=== PATIENT | male | born 1945 | race American Indian/Alaskan Native ===

== ENCOUNTER 2019-07-05 08:33 | Observation (INO) | payer MEDICARE ==
[2019-06-29 12:59] LABS: Basophils # (Auto) 0.1 K/mm3 (0.0-0.1); Basophils % (Auto) 1.3 % (0.0-1.8); Eosinophils % (Auto) 0.4 % (0.0-4.3); Hematocrit 37.6 % (35.5-45.6); Hemoglobin 12.4 gm/dl (11.8-15.2); Lymphocytes # (Auto) 1.9 K/mm3 (1.2-5.4); Lymphocytes % (Auto) 48.1 % (13.4-35.0); Mean Corpuscular HGB Conc 33 % (32-34); Mean Corpuscular Volume 96 fl (84-94); Monocytes # (Auto) 0.5 K/mm3 (0.0-0.8); Monocytes % (Auto) 12.6 % (0.0-7.3); Platelet Count 166 K/mm3 (140-440); Red Blood Count 3.92 M/mm3 (3.65-5.03); Red Cell Distribution Width 14.6 % (13.2-15.2)
[2019-06-29 13:14] LABS: INR 0.89 (0.87-1.13)
[2019-06-29 13:15] LABS: Partial Thromboplastin Time 30.9 Sec. (24.2-36.6)
--- NOTE | 2019-06-29 13:17 | Anesthesia Consultation ---
Anesthesia Consult and Med Hx Date of service: 07/05/19 - Airway Anesthetic Teeth Evaluation: Poor (Going to have them pulled out), Chipped ROM Head & Neck: Adequate Mental/Hyoid Distance: Adequate Mallampati Class: Class II Intubation Access Assessment: Good - Pre-Operative Health Status ASA Pre-Surgery Classification: ASA3 Proposed Anesthetic Plan: General - Pulmonary Hx Smoking: Yes (STOPPED X 20 YRS) Hx Sleep Apnea: Yes (DX SLEEP APNEA , NO CPAP) - Cardiovascular System Hx Hypertension: Yes (X 12 YRS) Hx Peripheral Vascular Disease: Yes (LEGS) - Central Nervous System CVA: Yes (2012,OCC SLURRED SPEECH,POOR BALANCE) Hx Psychiatric Problems: Yes (Depression) - Other Systems Hx Cancer: No
[2019-06-29 13:18] LABS: Albumin 3.9 g/dL (3.9-5); BUN/Creatinine Ratio 18; Blood Urea Nitrogen 23 mg/dL (9-20); Calcium 9.3 mg/dL (8.4-10.2); Hemolysis Index 108
[2019-06-29 13:38] LABS: Alanine Aminotransferase 24 units/L (7-56)
[~2019-07-05 08:33] MED LIST: ANCEF/STERILE WATER 2 GM/20 ML IV NR
[2019-07-05] MEDS ORDERED: ZOFRAN IV PRN (09:31)
[2019-07-05] MEDS ORDERED: SUBLIMAZE IV PRN (09:31)
--- NOTE | 2019-07-05 09:36 | Anesthesia Day of Surgery ---
Anesthesia Day of Surgery - Day of Surgery Patient Examined: Yes Patient H&P Reviewed: Yes Patient is NPO: Yes Cardiac Clearance: Yes
[2019-07-05] MEDS ORDERED: LACTATED RINGERS 1,000 ML IV SCH (10:00)
[2019-07-05] MEDS ORDERED: DIPRIVAN 10 MG/ML IV ONE (12:29)
[2019-07-05] MEDS ORDERED: SUBLIMAZE ONE (12:29)
[2019-07-05] MEDS ORDERED: XYLOCAINE MPF 2% ONE (12:30)
[2019-07-05] MEDS ORDERED: DECADRON ONE (12:51)
[2019-07-05] MEDS ORDERED: AMBIEN PO PRN (13:12)
[2019-07-05] MEDS ORDERED: NARCAN 0.4 MG/1 ML IV PRN (13:12)
[2019-07-05] MEDS ORDERED: ZOFRAN ODT PO PRN (13:12)
--- NOTE | 2019-07-05 13:12 | Short Stay Summary ---
Short Stay Documentation Date of service: 07/05/19 - History H&P: obtained from office - Allergies and Medications Current Medications: Allergies No Known Allergies Allergy (Verified 06/28/19 14:56) Home Medications Medication Instructions Recorded Confirmed Last Taken Type Clopidogrel [Plavix] 75 mg PO QDAY 06/28/19 07/05/19 06/27/19 08:00 History Ascorbic Acid [Vitamin C] 1,000 mg PO DAILY 06/29/19 06/29/19 07/05/19 08:00 History Cholecalciferol (Vitamin D3) 2,000 unit PO QDAY 06/29/19 06/29/19 07/04/19 20:00 History [Vitamin D3 2,000 UNIT CAP] Labetalol [Labetalol 200mg TAB] 200 mg PO BID 06/29/19 06/29/19 07/05/19 08:00 History Multivit-Min/FA/Lycopen/Lutein 1 each PO DAILY 06/29/19 06/29/19 07/05/19 08:00 History [Centrum Silver Tablet] [place]-3/Dha/Epa/Fish Oil [Fish Oil 1 each PO DAILY 06/29/19 06/29/19 07/04/19 20:00 History 1,200 mg Softgel] Simvastatin 20 mg PO DAILY 06/29/19 06/29/19 07/04/19 20:00 History Uroxatral 10 mg PO DAILY 06/29/19 06/29/19 07/05/19 08:00 History amLODIPine [Norvasc] 5 mg PO DAILY 06/29/19 06/29/19 07/04/19 20:00 History Active Medications Cefazolin Sodium (Ancef/Sterile Water 2 Gm/20 Ml) 2 gm IV PREOP NR Stop: 07/05/19 23:59 Fentanyl (Sublimaze) 50 mcg IV Q5MIN PRN PRN Reason: Pain , Severe (7-10) Stop: 07/05/19 20:00 Metronidazole (Flagyl 500 Mg/100 Ml) 500 mg in 100 mls @ 200 mls/hr IV PREOP NR; Protocol Stop: 07/05/19 17:29 Lactated Ringer's (Lactated Ringers) 1,000 mls @ 125 mls/hr IV DIRECT GIORGIO Last Admin: 07/05/19 11:55 Dose: 125 mls/hr Documented by: Ondansetron HCl (Zofran) 4 mg IV ONCE PRN PRN Reason: Nausea And Vomiting - Brief post op/procedure progress note Date of procedure: 07/05/19 Pre-op diagnosis: bph Post-op diagnosis: same Procedure: cysto, TURP Anesthesia: GETA Surgeon: BRANDON PETERSON Estimated blood loss: minimal Pathology: list (prostate chips) Specimen disposition: to lab Condition: stable - Hospital course Hospital course: bactrim & norco at bedside quiñonez clear urine home with quiñonez - Disposition Condition at discharge: Stable Disposition: DC-30 STILL A PATIENT Short Stay Discharge Plan Follow up with: ROMEO MARTINI JR, MD [Primary Care Provider] - 7 Days
--- NOTE | 2019-07-05 13:56 | Post Anesthesia Evaluation ---
- Post Anesthesia Evaluation Patient Participated: Yes Airway Patent: Yes Stable Respiratory Function: Yes Nausea/Vomiting: No Temp > 96.8F: Yes Pain Manageable: Yes Adequeate Hydration: Yes Anesthesia Complications: No Block Receding Appropriately: Not Applicable Patient on Ventilator: No
[2019-07-05] MEDS ORDERED: NACL 0.9% 1000 ML 1,000 ML IV SCH (14:00)
[2019-07-05] MEDS ORDERED: ZOFRAN ONE (14:00)
[2019-07-05] MEDS ORDERED: FLAGYL 500 MG/100 ML 500 MG/100 ML BAG IV NR (17:00)
[2019-07-05] MEDS: NACL 0.9% IR SCH ×6 (17:20→23:18)
[2019-07-05] MEDS: MORPHINE IV PRN (18:42)
--- NOTE | 2019-07-05 21:11 | Operative Report ---
PREOPERATIVE DIAGNOSIS: Benign prostatic hypertrophy. POSTOPERATIVE DIAGNOSIS: Benign prostatic hypertrophy. PROCEDURES: Cystoscopy, transurethral resection of the prostate. SURGEON: Saqib Tyler MD ANESTHESIA: General. ESTIMATED BLOOD LOSS: Minimal. FLUIDS: Crystalloid. COMPLICATIONS: No complications. INDICATIONS: This 74-year-old gentleman seen in the office with obstructive urinary symptoms. He was placed on oral medication in the form of Flomax to 2 tablets a day with persistent symptoms. He also has a history of cerebrovascular accident, hypertension and hyperlipidemia. He is on Plavix. Urodynamic testing is considered with an obstructive process with a peak flow rate of 5 mL a second. Discussed options. He agreed to proceed with surgical intervention. He agreed to proceed with surgical intervention. Medical clearance was obtained by Dr. Lowell Bird. DESCRIPTION OF PROCEDURE: The patient was taken to the operative suite, placed in supine position. After adequate general anesthesia, placed in a dorsal lithotomy position, prepped and draped in a sterile fashion. Pancystourethroscopy was performed with 22-[place] Storz cystoscope, no urethral abnormalities. Prostate displayed trilobar obstruction. He had a primary median lobe of his bladder. No tumors or stones were noted. Both ureteral orifices in normal position. Next, using a 24-[place] resectoscope, cutting and coag on 200 and 120, transurethral resection of the prostate was performed in a systematic fashion, taking down the median lobe and the left and right lateral lobes. The verumontanum and external sphincter were intact. Chips were evacuated out with the [employer] evacuator. A 24-[place] 3-way catheter was placed with the aid of a catheter guide. The catheter was irrigated well. He was extubated. Rectal exam was benign. He was taken to recovery room in stable condition. JOB# [id number] [facility]
[2019-07-05] MEDS: ANCEF/NS 1 GM/50 ML 1 GM/50 ML BAG IV SCH (21:38)
[2019-07-05] MEDS: NORCO 5/325 PO PRN (21:39)
[2019-07-05] MEDS: NORMODYNE PO SCH (21:41)
[2019-07-05] MEDS ORDERED: PRAVACHOL PO SCH (22:00)
[2019-07-06] MEDS: NACL 0.9% IR SCH ×3 (00:24→06:10)
[2019-07-06] MEDS: MORPHINE IV PRN (02:25)
[2019-07-06] MEDS: ANCEF/NS 1 GM/50 ML 1 GM/50 ML BAG IV SCH (04:27)
--- NOTE | 2019-07-06 05:23 | Consultation ---
History of Present Illness - Reason for Consult Consult date: 07/05/19 Medical management Requesting physician: BRANDON PETERSON - History of Present Illness S/p Cysto/Turp---Postop patient doing well Past History Past Medical History: hypertension, hyperlipidemia, other (Bph) Past Surgical History: TURP Social history: lives with family, full code Family history: hypertension Medications and Allergies Allergies Allergy/AdvReac Type Severity Reaction Status Date / Time No Known Allergies Allergy Verified 06/28/19 14:56 Home Medications Medication Instructions Recorded Confirmed Last Taken Type Clopidogrel [Plavix] 75 mg PO QDAY 06/28/19 07/05/19 06/27/19 08:00 History Ascorbic Acid [Vitamin C] 1,000 mg PO DAILY 06/29/19 06/29/19 07/05/19 08:00 History Cholecalciferol (Vitamin D3) 2,000 unit PO QDAY 06/29/19 06/29/19 07/04/19 20:00 History [Vitamin D3 2,000 UNIT CAP] Labetalol [Labetalol 200mg TAB] 200 mg PO BID 06/29/19 06/29/19 07/05/19 08:00 History Multivit-Min/FA/Lycopen/Lutein 1 each PO DAILY 06/29/19 06/29/19 07/05/19 08:00 History [Centrum Silver Tablet] [place]-3/Dha/Epa/Fish Oil [Fish Oil 1 each PO DAILY 06/29/19 06/29/19 07/04/19 20:00 History 1,200 mg Softgel] Simvastatin 20 mg PO DAILY 06/29/19 06/29/19 07/04/19 20:00 History Uroxatral 10 mg PO DAILY 06/29/19 06/29/19 07/05/19 08:00 History amLODIPine [Norvasc] 5 mg PO DAILY 06/29/19 06/29/19 07/04/19 20:00 History Active Meds: Active Medications Acetaminophen/Hydrocodone Bitart ([place] 5/325) 2 each PO Q4H PRN PRN Reason: Pain, Moderate (4-6) Last Admin: 07/05/19 21:39 Dose: 2 each Documented by: Amlodipine Besylate (Norvasc) 5 mg PO DAILY [facility] Ascorbic Acid (Vitamin C) 1,000 mg PO QDAY GIORGIO Cholecalciferol (Vitamin D3) 1,000 unit PO DAILY [facility] Fish Oil (Fish Oil) 4,000 mg PO QDAY [facility] Lactated Ringer's (Lactated Ringers) 1,000 mls @ 125 mls/hr IV DIRECT [facility] Last Admin: 07/05/19 11:55 Dose: 125 mls/hr Documented by: Cefazolin Sodium (Ancef/Ns 1 Gm/50 Ml) 1 gm in 50 mls @ 100 mls/hr IV Q8H [facility]; Protocol Stop: 07/06/19 05:29 Last Admin: 07/06/19 04:27 Dose: 100 mls/hr Documented by: Sodium Chloride (Nacl 0.9% 1000 Ml) 1,000 mls @ 75 mls/hr IV DIRECT [facility] Last Admin: 07/05/19 16:58 Dose: 75 mls/hr Documented by: Labetalol HCl (Normodyne) 200 mg PO BID [facility] Last Admin: 07/05/19 21:41 Dose: 200 mg Documented by: Morphine Sulfate (Morphine) 2 mg IV Q4H PRN PRN Reason: Pain, Moderate (4-6) Last Admin: 07/06/19 02:25 Dose: 2 mg Documented by: Multivitamins/Minerals (Theragran-M Tab) 1 each PO QDAY [facility] Naloxone HCl (Narcan 0.4 Mg/1 Ml) 0.1 mg IV Q2MIN PRN PRN Reason: Res Rate </= 8 or 02 SAT < 92% Ondansetron HCl (Zofran) 4 mg IV ONCE PRN PRN Reason: Nausea And Vomiting Ondansetron HCl (Zofran Odt) 4 mg PO Q8H PRN PRN Reason: Nausea And Vomiting Pravastatin Sodium (Pravachol) 20 mg PO QHS [facility] Last Admin: 07/05/19 21:40 Dose: 20 mg Documented by: Sodium Chloride (Nacl 0.9%) 2,000 ml IR DIRECT [facility] Last Admin: 07/06/19 04:27 Dose: 2,000 ml Documented by: Zolpidem Tartrate (Ambien) 5 mg PO QHS PRN PRN Reason: Sleep Review of Systems All systems: negative Genitourinary Male: urinary hesitancy (Before Turp procedure) Exam - Constitutional Vitals: Temp Pulse Resp BP Pulse Ox 98.2 F 86 19 141/93 94 07/06/19 03:55 07/06/19 03:55 07/06/19 03:55 07/06/19 03:55 07/06/19 03:55 General appearance: Present: no acute distress, well-nourished - EENT Eyes: Present: PERRL ENT: hearing intact, clear oral mucosa - Neck Neck: Present: supple, normal ROM - Respiratory Respiratory effort: normal Respiratory: bilateral: CTA - Cardiovascular Heart rate: 78 Rhythm: regular Heart Sounds: Present: S1 & S2. Absent: rub, click - Extremities Extremities: no ischemia, pulses intact, pulses symmetrical, No edema Peripheral Pulses: within normal limits - Abdominal General gastrointestinal: Present: soft, non-tender, non-distended, normal bowel sounds Male genitourinary: Present: normal - Rectal Rectal Exam: deferred - Integumentary Integumentary: Present: clear, warm, dry - Musculoskeletal Musculoskeletal: gait normal, strength equal bilaterally - Psychiatric Psychiatric: appropriate mood/affect, intact judgment & insight - Neurologic Neurologic: CNII-XII intact, moves all extremities - Allied Health Allied health notes reviewed: nursing, case management Results - Labs CBC & Chem 7: 06/29/19 12:20 06/29/19 12:20 Assessment and Plan - Patient Problems (1) S/P TURP (status post transurethral resection of prostate) Current Visit: Yes Status: Acute Plan to address problem: Postop patient doing well (2) HTN (hypertension) Current Visit: Yes Status: Chronic Qualifiers: Hypertension type: essential hypertension Qualified Code(s): I10 - Essential (primary) hypertension Plan to address problem: COnt antihypertensives (3) HLD (hyperlipidemia) Current Visit: Yes Status: Chronic Qualifiers: Hyperlipidemia type: mixed hyperlipidemia Qualified Code(s): E78.2 - Mixed hyperlipidemia Plan to address problem: Cont statins (4) DVT prophylaxis Current Visit: Yes Status: Acute Plan to address problem: On SCD's and GI prophylaxis
[2019-07-06] MEDS: VITAMIN D3 PO SCH ×2 (08:46→09:37)
[2019-07-06] MEDS: NORMODYNE PO SCH ×2 (08:46→09:36)
[2019-07-06] MEDS: THERAGRAN-M Tab PO SCH ×2 (08:46→09:37)
[2019-07-06] MEDS: NORVASC PO SCH ×2 (08:47→09:36)
[2019-07-06] MEDS: VITAMIN C PO SCH ×2 (08:47→09:37)
[2019-07-06 09:59] LABS: Basophils % (Auto) 0.1 % (0.0-1.8); Eosinophils % (Auto) 0.1 % (0.0-4.3); Hematocrit 37.2 % (35.5-45.6); Hemoglobin 12.4 gm/dl (11.8-15.2); Lymphocytes # (Auto) 1.4 K/mm3 (1.2-5.4); Lymphocytes % (Auto) 24.6 % (13.4-35.0); Mean Corpuscular HGB Conc 33 % (32-34); Mean Corpuscular Volume 95 fl (84-94); Monocytes # (Auto) 0.7 K/mm3 (0.0-0.8); Monocytes % (Auto) 11.5 % (0.0-7.3); Platelet Count 155 K/mm3 (140-440); Red Blood Count 3.89 M/mm3 (3.65-5.03); Red Cell Distribution Width 14.6 % (13.2-15.2)
[2019-07-06] MEDS ORDERED: NON-FORMULARY (Ascorbic Acid [Vitamin C] 1,000 MG) PO SCH (10:00)
[2019-07-06] MEDS ORDERED: NON-FORMULARY (Multivit-Min/Fa/Lycopen/Lutein [Centrum Silver Tablet] 1 EACH) PO SCH (10:00)
[2019-07-06] MEDS ORDERED: NON-FORMULARY (Simvastatin [Simvastatin] 20 MG) PO SCH (10:00)
[2019-07-06] MEDS ORDERED: FISH OIL PO SCH ×2 (10:00)
[2019-07-06] MEDS ORDERED: DHA PO SCH (10:00)
[2019-07-06] MEDS ORDERED: OMEGA PO SCH (10:00)
[2019-07-06] MEDS ORDERED: NON-FORMULARY (Cholecalciferol (Vitamin D3) [Vitamin D3 2,000 Unit Cap] 2,000 UNIT) PO SCH (10:00)
[2019-07-06] MEDS ORDERED: EPA PO SCH (10:00)
[2019-07-06 10:20] LABS: BUN/Creatinine Ratio 24; Blood Urea Nitrogen 26 mg/dL (9-20); Calcium 8.9 mg/dL (8.4-10.2); Hemolysis Index 13
[2019-07-06 12:11] VITALS: BP 189/124
[2019-07-06] MEDS ORDERED: NORMODYNE PO ONE (13:00)
[2019-07-06] MEDS ORDERED: NORVASC PO ONE (13:00)
[2019-07-06] MEDS ORDERED: NORVASC PO SCH (13:00)
--- NOTE | 2019-07-06 13:10 | Progress Note ---
Assessment and Plan Assessment and plan: BPH. Patient status post cystoscopy and TURP. Discharge per urology. Accelerated hypertension. Increase labetalol and Norvasc. History Interval history: No new issues overnight. Hospitalist Physical - Constitutional Vitals: Temp Pulse Resp BP Pulse Ox 98.0 F 98 H 18 189/124 100 07/06/19 12:02 07/06/19 12:02 07/06/19 12:02 07/06/19 12:39 07/06/19 12:02 General appearance: Present: no acute distress, well-nourished - EENT Eyes: Present: PERRL, EOM intact ENT: hearing intact, clear oral mucosa, dentition normal - Neck Neck: Present: supple, normal ROM - Respiratory Respiratory effort: normal Respiratory: bilateral: CTA - Cardiovascular Rhythm: regular Heart Sounds: Present: S1 & S2. Absent: gallop, rub - Extremities Extremities: no ischemia, No edema, Full ROM - Abdominal General gastrointestinal: soft, non-tender, non-distended, normal bowel sounds - Integumentary Integumentary: Present: clear, warm, dry - Neurologic Neurologic: CNII-XII intact, moves all extremities Results - Labs CBC & Chem 7: 07/06/19 08:55 07/06/19 08:55 Labs: Laboratory Last Values WBC 5.9 K/mm3 (4.5-11.0) 07/06/19 08:55 RBC 3.89 M/mm3 (3.65-5.03) 07/06/19 08:55 Hgb 12.4 gm/dl (11.8-15.2) 07/06/19 08:55 Hct 37.2 % (35.5-45.6) 07/06/19 08:55 MCV 95 fl (84-94) H 07/06/19 08:55 MCH 32 pg (28-32) 07/06/19 08:55 MCHC 33 % (32-34) 07/06/19 08:55 RDW 14.6 % (13.2-15.2) 07/06/19 08:55 Plt Count 155 K/mm3 (140-440) 07/06/19 08:55 Lymph % (Auto) 24.6 % (13.4-35.0) 07/06/19 08:55 [place] % (Auto) 11.5 % (0.0-7.3) H 07/06/19 08:55 Eos % (Auto) 0.1 % (0.0-4.3) 07/06/19 08:55 Baso % (Auto) 0.1 % (0.0-1.8) 07/06/19 08:55 Lymph # 1.4 K/mm3 (1.2-5.4) 07/06/19 08:55 [place] # 0.7 K/mm3 (0.0-0.8) 07/06/19 08:55 Eos # 0.0 K/mm3 (0.0-0.4) 07/06/19 08:55 Baso # 0.0 K/mm3 (0.0-0.1) 07/06/19 08:55 Seg Neutrophils % 63.7 % (40.0-70.0) 07/06/19 08:55 Seg Neutrophils # 3.7 K/mm3 (1.8-7.7) 07/06/19 08:55 PT 11.8 Sec. (12.2-14.9) L 06/29/19 12:20 INR 0.89 (0.87-1.13) 06/29/19 12:20 APTT 30.9 Sec. (24.2-36.6) 06/29/19 12:20 Sodium 146 mmol/L (137-145) H 07/06/19 08:55 Potassium 3.6 mmol/L (3.6-5.0) 07/06/19 08:55 Chloride 104.7 mmol/L (98-107) 07/06/19 08:55 Carbon Dioxide 31 mmol/L (22-30) H 07/06/19 08:55 14 mmol/L 07/06/19 08:55 BUN 26 mg/dL (9-20) H 07/06/19 08:55 1.1 mg/dL (0.8-1.5) 07/06/19 08:55 Estimated GFR > 60 ml/min 07/06/19 08:55 24 % 07/06/19 08:55 Glucose 120 mg/dL (75-100) H 07/06/19 08:55 Calcium 8.9 mg/dL (8.4-10.2) 07/06/19 08:55 0.30 mg/dL (0.1-1.2) 06/29/19 12:20 AST 37 units/L (5-40) 06/29/19 12:20 ALT 24 units/L (7-56) 06/29/19 12:20 87 units/L (35-129) 06/29/19 12:20 7.8 g/dL (6.3-8.2) 06/29/19 12:20 3.9 g/dL (3.9-5) 06/29/19 12:20 1.0 % 06/29/19 12:20 Blood Type A NEGATIVE 07/05/19 10:33 Antibody Screen Negative 07/05/19 10:33 Active Medications - Current Medications Current Medications: Generic Name Dose Route Start Last Admin Trade Name Freq PRN Reason Stop Dose Admin Acetaminophen/Hydrocodone Bitart 2 each 07/05/19 13:12 07/05/19 21:39 [place] 5/325 PO 2 each Q4H PRN Administration Pain, Moderate (4-6) Amlodipine Besylate 5 mg 07/06/19 10:00 07/06/19 09:36 Norvasc PO Not Given DAILY [facility] Ascorbic Acid 1,000 mg 07/06/19 10:00 07/06/19 09:37 Vitamin C PO Not Given QDAY [facility] Cholecalciferol 1,000 unit 07/06/19 10:00 07/06/19 09:37 Vitamin D3 PO Not Given DAILY [facility] Fish Oil 4,000 mg 07/06/19 10:00 07/06/19 09:56 Fish Oil PO 4,000 mg QDAY GIORGIO Administration Lactated Ringer's 1,000 mls @ 125 mls/hr 07/05/19 10:00 07/05/19 11:55 Lactated Ringers IV 125 mls/hr DIRECT GIORGIO Administration Sodium Chloride 1,000 mls @ 75 mls/hr 07/05/19 14:00 07/05/19 16:58 Nacl 0.9% 1000 Ml IV 75 mls/hr DIRECT GIORGIO Administration Labetalol HCl 200 mg 07/05/19 22:00 07/06/19 09:36 Normodyne PO Not Given BID [facility] Morphine Sulfate 2 mg 07/05/19 13:12 07/06/19 02:25 Morphine IV 2 mg Q4H PRN Administration Pain, Moderate (4-6) Multivitamins/Minerals 1 each 07/06/19 10:00 07/06/19 09:37 Theragran-M Tab PO Not Given QDAY [facility] Naloxone HCl 0.1 mg 07/05/19 13:12 Narcan 0.4 Mg/1 Ml IV Q2MIN PRN Res Rate </= 8 or 02 SAT < 92% Ondansetron HCl 4 mg 07/05/19 09:31 Zofran IV ONCE PRN Nausea And Vomiting Ondansetron HCl 4 mg 07/05/19 13:12 Zofran Odt PO Q8H PRN Nausea And Vomiting Pravastatin Sodium 20 mg 07/05/19 22:00 07/05/19 21:40 Pravachol PO 20 mg QHS GIORGIO Administration Sodium Chloride 2,000 ml 07/05/19 14:00 07/06/19 06:10 Nacl 0.9% IR 2,000 ml DIRECT GIORGIO Administration Zolpidem Tartrate 5 mg 07/05/19 13:12 Ambien PO QHS PRN Sleep
[2019-07-06] MEDS: NORCO 5/325 PO PRN (14:13)
== END 2019-07-06 14:39 | disposition home or self-care (01) ==
LOC: OR 08:33 → 3B-SURG 13:12 → INTOOBSV 13:12
PROVIDERS: ADMIT Urology; ATTEND Urology
DX: N40.1 Benign prostatic hyperplasia with lower urinary tract symptoms (principal); R35.1 Nocturia; I10 Essential (primary) hypertension; E78.5 Hyperlipidemia, unspecified; Z79.01 Long term (current) use of anticoagulants; Z79.899 Other long term (current) drug therapy; Z82.49 Family history of ischemic heart disease and other diseases of the circulatory system
CPT/HCPCS: 36415; 52601; 80048; 80053; 85025; 85610; 85730; 86850; 86900; 86901; 88305; 88342; 93005; 93010; 94760; 96365; 96366; 96367; 96375; 96376; A4217; A9270; G0378; J0690; J1100; J2270; J2405; J2704; J3010; J7030; J7120; 88344

== ENCOUNTER 2020-10-02 14:09 | Emergency (ER) | payer MEDICARE ==
[2020-10-02 14:27] VITALS: BP 145/99
--- NOTE | 2020-10-02 15:16 | Event Note ---
ED Screening Note ED Screening Note: right periorbital edema and erythema that began yesterday has an eye operation 2-3 months ago has been getting an injection in the eye monthly did not get anything in the eye that he is aware of there is significant edema to the right lower eyelid, there is crepitus This initial assessment/diagnostic orders/clinical plan/treatment(s) is/are subject to change based on patients health status, clinical progression and re- assessment by fellow clinical providers in the ED. Further treatment and workup at subsequent clinical providers discretion. Patient/guardian urged not to elope from the ED as their condition may be serious if not clinically assessed and managed. Initial orders include: labs, CT facial bones with contrast
[2020-10-02 16:55] LABS: Hematocrit 35.3 % (35.5-45.6); Hemoglobin 11.9 gm/dl (11.8-15.2); Mean Corpuscular HGB Conc 34 % (32-34); Mean Corpuscular Volume 97 fl (84-94); Platelet Count 130 K/mm3 (140-440); Red Blood Count 3.65 M/mm3 (3.65-5.03); Red Cell Distribution Width 14.6 % (13.2-15.2)
[2020-10-02 17:49] LABS: Alanine Aminotransferase 11 units/L (7-56); Albumin 3.4 g/dL (3.9-5); BUN/Creatinine Ratio 15; Blood Urea Nitrogen 16 mg/dL (9-20); Calcium 8.9 mg/dL (8.4-10.2); Hemolysis Index 5
[2020-10-02] MEDS ORDERED: TETRACAINE 0.5% OPHTH SOLN 4ML ONE (18:08)
[2020-10-02] MEDS ORDERED: FLUORESCEIN 1 MG STRIP OP ONE ×2 (18:08→18:09)
[2020-10-02] MEDS ORDERED: TETRACAINE 0.5% OPHTH SOLN 4ML OU ONE (18:09)
--- NOTE | 2020-10-02 18:21 | Cat Scan Report ---
CT facial bones w con INDICATION: significant right periorbital edema with crepitus. TECHNIQUE: Maxillofacial CT with IV contrast, patient received 100 cc IV Omnipaque [id number]. All CT scans at this [facility] ation are performed using CT dose reduction for ALARA by means of automated exposure control. COMPARISON: None available. FINDINGS: There is moderate subcutaneous cellulitis in the right periorbital soft tissues without evidence of p ostseptal extension. There is no subcutaneous air or focal fluid collection. The globes appear normal aside from previous right cataract surgery. The paranasal sinuses are clear aside from a mucous retention cyst in left maxillary sinus. There is no aggressive-appearing bone destruction. There is moderate facet DJD and degenerative disc disease i n the visualized upper cervical spine. There is no cervical lymphadenopathy visualized. Visualized portions of the brain demonstrate no acute abnormality. However, there is a left [employer] aneur ysm measuring about 7 mm. There is a remote right cerebellar hemisphere infarct. IMPRESSION: 1. Right periorbital/facial cellulitis without evidence of abscess or postseptal extension. 2. 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 Nonemergent referral to interventional neuro martin latisha or interventional neuroradiology would be appropriate for further evaluation and possible manage ment. Signer Name: Ant Zamudio MD Signed: 10/02/2020 6:17 PM Workstation Name: [id number]
--- NOTE | 2020-10-02 18:47 | Emergency Department Report ---
ED Eye Problem HPI - General Chief complaint: Eye Problems Stated complaint: RT EYE SWELLING/PAIN Time Seen by Provider: 10/02/20 15:13 Source: patient Mode of arrival: Wheelchair Limitations: No Limitations - History of Present Illness Initial comments: Chief complaint: Swelling around the eye HPI: This is a 75-year-old male with history of CVA, normal pressure hydrocephalus, corneal transplant right eye who presents with swelling around the right eye since yesterday. Patient used a towel and water to attempt to remove a foreign object. He had a foreign body itchy sensation to the right eye. No trauma. No known exposure. Since that time patient has had increasing swelling around the eye. Mild redness. No change in vision. Patient is followed by Dr. Paz corneal specialist. Patient had corneal transplant of the right eye 3 years ago. Patient has had a chronic corneal abrasion since the transplant. I was discovered 6 to 8 months ago that the corneal transplant was at risk for rejection. Patient receives steroid injections by production floater every 6 to 8 weeks in order to prevent rejection of the graft. History obtained by Luzmaria at the bedside. chief complaint: eye redness, other (swelling around right eye) -: Gradual, days(s) (swelling began yesterday) Onset Description: gradual Location: right eye Place: home If Injury: none, other (Patient had foreign body sensation in the right eye) Eye Symptoms: redness, itching Severity: mild Consistency: constant Context: other (right ) Associated Symptoms: other (facial swelling) Treatments Prior to Arrival: none - Related Data Home Medications Medication Instructions Recorded Confirmed Last Taken Clopidogrel [Plavix] 75 mg PO QDAY 06/28/19 07/05/19 06/27/19 08:00 Ascorbic Acid [Vitamin C] 1,000 mg PO DAILY 06/29/19 06/29/19 07/05/19 08:00 Cholecalciferol (Vitamin D3) 2,000 unit PO QDAY 06/29/19 06/29/19 07/04/19 20:00 [Vitamin D3 2,000 UNIT CAP] Multivit-Min/FA/Lycopen/Lutein 1 each PO DAILY 06/29/19 06/29/19 07/05/19 08:00 [Centrum Silver Tablet] [place]-3/Dha/Epa/Fish Oil [Fish Oil 1 each PO DAILY 06/29/19 06/29/1907/04/19 20:00 1,200 mg Softgel] Simvastatin 20 mg PO DAILY 06/29/19 06/29/19 07/04/19 20:00 Uroxatral 10 mg PO DAILY 06/29/19 06/29/19 07/05/19 08:00 amLODIPine [Norvasc] 5 mg PO DAILY 06/29/19 06/29/19 07/04/19 20:00 labetaloL [Labetalol 200mg TAB] 200 mg PO BID 06/29/19 06/29/19 07/05/19 08:00 Previous Rx's Medication Instructions Recorded Last Taken Type Amoxicillin/Potassium Clav 1 each PO BID 10 Days #20 tablet 10/02/20 Unknown Rx [Augmentin 875-125 Tablet] Allergies Allergy/AdvReac Type Severity Reaction Status Date / Time No Known Allergies Allergy Verified 06/28/19 14:56 ED Review of Systems ROS: Stated complaint: RT EYE SWELLING/PAIN Other details as noted in HPI Comment: All other systems reviewed and negative Constitutional: denies: fever, malaise Eyes: denies: eye pain, eye discharge, vision change ENT: denies: throat pain, congestion Cardiovascular: denies: chest pain Gastrointestinal: denies: abdominal pain, nausea, vomiting ED Past Medical Hx - Past Medical History Previous Medical History?: Yes Hx Hypertension: Yes (X 12 YRS) Hx CVA: Yes Additional medical history: NPH - Surgical History Additional Surgical History: Lumbar puncture for NPH. 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, - Medications Home Medications: Home Medications Medication Instructions Recorded Confirmed Last Taken Type Clopidogrel [Plavix] 75 mg PO QDAY 06/28/19 07/05/19 06/27/19 08:00 History Ascorbic Acid [Vitamin C] 1,000 mg PO DAILY 06/29/19 06/29/19 07/05/19 08:00 History Cholecalciferol (Vitamin D3) 2,000 unit PO QDAY 06/29/19 06/29/19 07/04/19 20:00 History [Vitamin D3 2,000 UNIT CAP] Multivit-Min/FA/Lycopen/Lutein 1 each PO DAILY 06/29/19 06/29/19 07/05/19 08:00 History [Centrum Silver Tablet] [place]-3/Dha/Epa/Fish Oil [Fish Oil 1 each PO DAILY 06/29/19 06/29/19 07/04/19 20:00 History 1,200 mg Softgel] Simvastatin 20 mg PO DAILY 06/29/19 06/29/19 07/04/19 20:00 History Uroxatral 10 mg PO DAILY 06/29/19 06/29/19 07/05/19 08:00 History amLODIPine [Norvasc] 5 mg PO DAILY 06/29/19 06/29/19 07/04/19 20:00 History labetaloL [Labetalol 200mg TAB] 200 mg PO BID 06/29/19 06/29/19 07/05/19 08:00 History Amoxicillin/Potassium Clav 1 each PO BID 10 Days #20 tablet 10/02/20 Unknown Rx [Augmentin 875-125 Tablet] ED Physical Exam - General Limitations: No Limitations General appearance: alert, in no apparent distress - Head Head exam: Present: atraumatic, normocephalic - Eye Eye exam: Present: normal appearance, other (hazy cornea mild conjunctival infection, no fluorescein uptake, periorbital swelling without tenderness, no tenderness on palpation of the maxillary sinuses) - ENT ENT exam: Present: mucous membranes moist - Neck Neck exam: Present: normal inspection, full ROM - Respiratory Respiratory exam: Present: normal lung sounds bilaterally. Absent: respiratory distress, wheezes, rales, rhonchi - Cardiovascular Cardiovascular Exam: Present: regular rate, normal rhythm, normal heart sounds. Absent: systolic murmur, diastolic murmur, rubs, gallop - GI/Abdominal GI/Abdominal exam: Present: soft, normal bowel sounds. Absent: distended, tenderness, guarding, rebound - Rectal Rectal exam: Present: deferred - Extremities Exam Extremities exam: Present: pedal edema - Neurological Exam Neurological exam: Present: alert, other (Oriented to name situation) - Psychiatric Psychiatric exam: Present: normal affect, normal mood - Skin Skin exam: Present: warm, dry, intact, normal color. Absent: rash ED Course Vital Signs 10/02/20 10/02/20 14:25 14:28 Temperature 97.8 F Pulse Rate 73 Respiratory 16 Rate Blood Pressure 145/99 [Right] O2 Sat by Pulse 97 Oximetry ED Medical Decision Making - Lab Data Result diagrams: 10/02/20 16:30 10/02/20 16:30 Laboratory Results - last 24 hr 10/02/20 10/02/20 10/02/20 16:30 16:30 16:30 WBC 3.7 L RBC 3.65 Hgb 11.9 Hct 35.3 L MCV 97 H MCH 33 H MCHC 34 RDW 14.6 Plt Count 130 L Ward % (Auto) Traveling Engineer Sodium 142 Potassium 3.4 L Chloride 105.9 Carbon Dioxide 28 Anion Gap 12 BUN 16 Creatinine 1.1 Estimated GFR > 60 BUN/Creatinine Ratio 15 Glucose 98 Lactic Acid 1.10 Calcium 8.9 Total Bilirubin 0.50 AST 19 ALT 11 Alkaline Phosphatase 78 Total Protein 7.4 Albumin 3.4 L Albumin/Globulin Ratio 0.9 - Radiology Data Radiology results: report reviewed CT facial bones with contrast: Radiology impression 1. Right periorbital facial cellulitis without evidence for post septal extension 2. Incidental 7 mm left ANIMAL [employer] SERVICE WORKER aneurysm intracranially - Medical Decision Making 1. Preseptal facial cellulitis without indication of orbital cellulitis. Patient given first dose of Augmentin in the emergency department. Prescribed 10 days of Augmentin. understands to follow-up with his cornea specialist Dr. Paz tomorrow. 2. Incidental ANIMAL C[employer] SERVICE WORKER aneurysm. Patient has had extensive treatment and evaluation by neurologist in the outpatient setting for NPH. Patient is being considered for SUMMER CHILD CAREGIVER shunt. I have provided a copy of CT report findings which include the incidental finding ANIMAL CARE SERVICE WORKER aneurysm. I provided verbal instruction and education regarding the incidental finding. will take CT scan reports to patient's personal neurologist. Critical care attestation.: If time is entered above; I have spent that time in minutes in the direct care of this critically ill patient, excluding procedure time. ED Disposition Clinical Impression: Preseptal cellulitis of right eye, Intracranial aneurysm Disposition: DC-01 TO HOME OR SELFCARE Is pt being admited?: No Does the pt Need Aspirin: No Condition: Stable Instructions: Preseptal Cellulitis, Adult Additional Instructions: Please follow-up with Dr. Paz tomorrow. Prescriptions: Amoxicillin/Potassium Clav [Augmentin 875-125 Tablet] 1 each PO BID 10 Days #20 tablet
[2020-10-02] MEDS ORDERED: AMOXICILLIN/K CLAV 875/125MG TAB PO STA (18:54)
[2020-10-02 20:15] LABS: Total Cells Counted 100
[2020-10-02 20:17] LABS: Ovalocytes Few
[2020-10-02 20:18] LABS: Platelet Estimate Consistent w Auto
== END 2020-10-02 19:25 | disposition home or self-care (01) ==
LOC: ED 14:09
DX: L03.213 Periorbital cellulitis (principal); I71.2 Thoracic aortic aneurysm, without rupture; I10 Essential (primary) hypertension; Z86.73 Personal history of transient ischemic attack (TIA), and cerebral infarction without residual deficits; Z79.899 Other long term (current) drug therapy
CPT/HCPCS: 36415; 70487; 80053; 82140; 85007; 85025; 99284; Q9967